=== PATIENT | male | born 1945 | race Caucasian/White ===

== ENCOUNTER → 2018-11-13 | Outpatient (CLI) | payer MEDICARE ==
--- NOTE | 2018-11-13 14:51 | PCVCIMAG ---
EXAM: BILATERAL LOWER EXTREMITY ARTERIAL DUPLEX INDICATION: Peripheral Arterial Disease. Leg pain. FINDINGS: Right Leg: Common femoral artery is patent. 90% stenosis origin profunda femoral artery. Subtotal occlusion throughout the mid [place] superficial femoral artery. Popliteal artery is patent. Anterior tibial and posterior tibial arteries show reasonable patency. Occlusion of the peroneal artery. Left Leg: Common femoral profunda femoral arteries are patent. Subtotal occlusion throughout the mid/distal left superficial femoral artery. Short segment occlusion mid [place] popliteal artery. Occlusion throughout the anterior tibial and peroneal arteries. Posterior tibial artery is patent. 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 Subtotal occlusion throughout the mid/distal left superficial femoral artery. Short segment occlusion mid [place] left popliteal artery. Occlusion of the left anterior tibial and peroneal arteries. LOC:[id number]
== END | disposition home or self-care (01) ==
LOC: PCVCIMAG 11:26
PROVIDERS: ATTEND Physician Assistant Medical
DX: I70.203 Unspecified atherosclerosis of native arteries of extremities, bilateral legs (principal)
CPT/HCPCS: 93925